=== PATIENT | female | born 1980 | race Two or more races ===

== ENCOUNTER 2022-05-23 16:48 | Emergency (ER) | payer SELFPAY ==
[~2022-05-23] VITALS: Ht 170.2 cm; Wt 81.4 kg
[2022-05-23] MEDS ORDERED: famotidine/PF 10 mg/ml inj IV ONE ×2 (17:05→17:20)
[2022-05-23] MEDS ORDERED: diphenhydrAMINE 50 mg/ml inj IV ONE ×2 (17:05→17:20)
[2022-05-23] MEDS ORDERED: methylPREDNISolone sod succ 125mg/2ml vial IV ONE ×2 (17:05→17:20)
[2022-05-23] MEDS ORDERED: epiNEPHrine 1 mg/ml inj SQ STA (17:17)
[2022-05-23] MEDS ORDERED: normal saline 1000ML IV soln IVB ONE (17:20)
[2022-05-23] MEDS ORDERED: EPIN0.3P3 IM (17:20)
[2022-05-23 17:47] VITALS: BP 126/86
[2022-05-24] MEDS ORDERED: CETI-90 PO (15:49)
[2022-05-24] MEDS ORDERED: MONT5TAB14 PO (15:49)
[2022-05-24] MEDS ORDERED: PRED10TA23 PO (15:49)
== END 2022-05-23 18:43 | disposition home or self-care (01) ==
LOC: ER 16:49
DX: T78.49XA Other allergy, initial encounter (principal); X58.XXXA Exposure to other specified factors, initial encounter; Z88.5 Allergy status to narcotic agent; Z88.8 Allergy status to other drugs, medicaments and biological substances; Z79.899 Other long term (current) drug therapy
CPT/HCPCS: 96361; 96372; 96374; 96375; 99291; J0171; J1200; J2930; J3490; J7030

== ENCOUNTER 2022-05-24 13:23 | Emergency (ER) | payer SELFPAY ==
[~2022-05-24] VITALS: Ht 170.2 cm; Wt 80.0 kg
[~2022-05-24 13:23] MED LIST: EPIN0.3P3 IM
[2022-05-24] MEDS ORDERED: dexamethasone sod phosphate 10mg/ml inj IV STA (13:59)
[2022-05-24] MEDS ORDERED: epiNEPHrine 1 mg/ml inj SQ STA (13:59)
[2022-05-24] MEDS ORDERED: diphenhydrAMINE 50 mg/ml inj IV ONE (14:00)
[2022-05-24] MEDS ORDERED: normal saline 1000ML IV soln IVB ONE (14:00)
[2022-05-24] MEDS ORDERED: famotidine/PF 10 mg/ml inj IV ONE (14:00)
[2022-05-24] MEDS ORDERED: cetirizine 10mg tablet PO STA (15:03)
[2022-05-24] MEDS ORDERED: CETI-90 PO (15:49)
[2022-05-24] MEDS ORDERED: montelukast 10mg tablet PO STA (15:49)
[2022-05-24] MEDS ORDERED: PRED10TA23 PO (15:49)
[2022-05-24] MEDS ORDERED: MONT5TAB14 PO (15:49)
[2022-05-24 16:28] VITALS: BP 132/78
== END 2022-05-24 16:34 | disposition home or self-care (01) ==
LOC: ER 13:23
DX: L25.8 Unspecified contact dermatitis due to other agents (principal); T39.8X5A Adverse effect of other nonopioid analgesics and antipyretics, not elsewhere classified, initial encounter; Z88.8 Allergy status to other drugs, medicaments and biological substances; Z79.899 Other long term (current) drug therapy; Y92.89 Other specified places as the place of occurrence of the external cause
CPT/HCPCS: 96361; 96372; 96374; 96375; 99284; J0171; J1100; J1200; J3490; J7030; 93005